=== PATIENT | female | born 1970 ===

== ENCOUNTER 2020-10-22 06:02 | Day surgery (SDC) | payer OTHER ==
[~2020-10-22 06:02] MED LIST: AMBIEN5 MG PO; FIORICET PO; NORFLEX PO; SINGULAIR 10MG10 MG PO; ULTRAM50 MG PO; YUVAFEM10 MCG VAG
[2020-10-22] MEDS ORDERED: PERCOCET 5-3251 EACH PO (12:39)
[2020-10-22] MEDS ORDERED: POLY119PG PO (12:39)
[2020-10-22] MEDS ORDERED: SURFAK240 M1 PO (12:40)
== END 2020-10-22 16:30 | disposition home or self-care (01) ==
LOC: CIR.AMB 06:02
PROVIDERS: ATTEND Surgery
DX: K80.10 Calculus of gallbladder with chronic cholecystitis without obstruction (principal); K42.9 Umbilical hernia without obstruction or gangrene; K43.2 Incisional hernia without obstruction or gangrene; Z20.822 Contact with and (suspected) exposure to COVID-19

== ENCOUNTER 2025-02-15 10:00 | Outpatient (CLI) | payer OTHER ==
[~2025-02-15 10:00] MED LIST changes: +PERCOCET 5-3251 EACH PO; +POLY119PG PO; +SURFAK240 M1 PO
== END 2025-02-15 10:12 | disposition home or self-care (01) ==
LOC: TOM 10:00
PROVIDERS: ATTEND Internal Medicine Gastroenterology
DX: R10.13 Epigastric pain (principal); R93.3 Abnormal findings on diagnostic imaging of other parts of digestive tract